=== PATIENT | female | born 2000 | race Two or more races ===

== ENCOUNTER 2019-10-07 20:34 | Emergency (ER) | payer OTHER ==
[~2019-10-07] VITALS: Ht 162.6 cm; Wt 63.6 kg
[2019-10-07 20:45] VITALS: BP 162/81
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
[2019-10-07] MEDS ORDERED: LIDOCAINE WITH 8.4% SOD BICARB 3 ML DISP.SYRIN. INJ ONE (21:00)
[2019-10-07] MEDS ORDERED: DIPH,PERTUSS(ACELL),TET VAC/PF 0.5 ML SYRINGE. VAX IM ONE (21:30)
== END 2019-10-07 22:14 | disposition home or self-care (01) ==
LOC: ER 20:34 → EEVIPCON 20:34 → ER 22:14
DX: S01.81XA Laceration without foreign body of other part of head, initial encounter (principal); Y04.2XXA Assault by strike against or bumped into by another person, initial encounter; Y93.89 Activity, other specified; Y92.89 Other specified places as the place of occurrence of the external cause; Y99.8 Other external cause status
CPT/HCPCS: 12013; 90471; 90715; 99283; J3490